=== PATIENT | male | born 1975 | race Caucasian/White ===

== ENCOUNTER 2018-03-06 05:55 | Emergency (ER) | END 2018-03-06 09:10 | disposition home or self-care (01) ==

== ENCOUNTER 2018-09-30 16:50 | Emergency (ER) | END 2018-09-30 18:13 | disposition home or self-care (01) ==

== ENCOUNTER 2019-01-02 13:47 | Emergency (ER) | payer MEDICAID ==
[~2019-01-02] VITALS: Ht 167.6 cm; Wt 91.0 kg
[~2019-01-02 13:47] MED LIST: HYDR-3498 PO; LORA-441 PO; TAMS-14 PO; TRAM50TA2 PO
[2019-01-02 14:00] VITALS: BP 158/77; PULSE 86; RESP 18; Ht 167.6 cm; Wt 91.0 kg
[2019-01-02] MEDS ORDERED: CLOT30CR24 TOP (15:19)
[2019-01-02] MEDS ORDERED: IBUP-1542 PO (15:20)
--- NOTE | 2019-01-02 15:28 | ERD ---
ER Documentation Chief Complaint Chief Complaint DYSURIA X 1 WEEK HPI 43-year-old male presents with sensation of dysuria for the last week. He has irritation in on the penis as well. Denies fevers, vomiting, shortness of breath or chest pain. Denies abdominal pain or flank pain. Denies penile discharge and denies history of new sexual partners or concern for STDs. ROS All systems reviewed and are negative except as per history of present illness. Medications Home Meds Active Scripts Ibuprofen* (Motrin*) 600 Mg Tab, 600 MG PO Q6, #15 TAB Prov:MARCELA CONRAD MD 01/02/19 Clotrimazole* (Clotrimazole* AF) 1% - 30 Gm Cream.gm., 1 APPLIC TOP BID for 10 Days, TUB Prov:MARCELA CONRAD MD 01/02/19 Lorazepam* (Ativan*) 0.5 Mg Tablet, 0.5 MG PO Q8 PRN for ANXIETY, #5 TAB Prov:NATHAN AGARWAL MD 09/30/18 Tramadol HCl (Tramadol HCl) 50 Mg Tablet, 50 MG PO Q4 PRN for PAIN, #20 TAB Prov:MARCELA CONRAD MD 03/06/18 Tamsulosin Hcl* (Flomax*) 0.4 Mg Cap.er.24h, 0.4 MG PO QPM, #30 CAP Prov:MARCELA CONRAD MD 03/06/18 Tamsulosin Hcl* (Flomax*) 0.4 Mg Cap.er.24h, 0.4 MG PO QPM for 10 Days, #30 CAP Prov:OSMAR SARAVIA MD 04/29/16 Hydrocodone Bit-Acetaminophen* ([place]ie*) 5-325 Mg Tab, 1 TAB PO Q6 PRN for PAIN, #10 TAB Prov:OSMAR SARAVIA MD 04/29/16 Allergies Allergies: Coded Allergies: No Known Allergies (Verified Allergy, Mild, 04/29/16) PMhx/Soc History of Surgery: No Anesthesia Reaction: No Hx Neurological Disorder: No Hx Respiratory Disorders: No Hx Cardiac Disorders: No Hx Psychiatric Problems: No Hx Miscellaneous Medical Probl: Yes (LEFT KIDNEY STONE) Hx Alcohol Use: No Hx Substance Use: No Hx Tobacco Use: No Smoking Status: Never smoker FmHx Family History: No diabetes, No coronary disease, No other Physical Exam Vitals Vital Signs Date Temp Pulse Resp B/P (MAP) Pulse Ox O2 O2 Flow FiO2 Time Delivery Rate 01/02/19 98.8 86 18 158/77 97 14:00 (104) Physical Exam Const: No acute distress Head: Atraumatic Eyes: Normal Conjunctiva ENT: Normal External Ears, Nose and Mouth. TMs and oropharynx normal. Neck: Full range of motion. No meningismus. Resp: Clear to auscultation bilaterally Cardio: Regular rate and rhythm, no murmurs Abd: Soft, non tender, non distended. Normal bowel sounds. General exam- patient is uncircumcised slight irritation upon retraction of foreskin. No penile discharge. Testicles nontender normal size and descended bilaterally. Skin: No petechiae or rashes Back: No midline or flank tenderness Ext: No cyanosis, or edema Neur: Awake and alert Psych: Normal Mood and Affect Results 24 hrs Laboratory Tests Test 01/02/19 14:45 Urine Color YELLOW Urine Clarity CLEAR Urine pH 6.0 Urine Specific [place] 1.025 Urine Ketones NEGATIVE mg/dL Urine Nitrite NEGATIVE mg/dL Urine Bilirubin NEGATIVE mg/dL Urine Urobilinogen NEGATIVE mg/dL Urine Leukocyte Esterase NEGATIVE Mik/ul Urine Hemoglobin NEGATIVE mg/dL Urine Glucose NEGATIVE mg/dL Urine Total Protein NEGATIVE mg/dl Procedures/MDM Urine is negative for sent for gonorrhea chlamydia. Patient presents with dysuria but has signs of balanitis. Is no signs of abdominal pain is well- appearing. He has additional complaints of sore throat with essentially normal exam. Will treat with Lotrimin, ibuprofen, further observation at home, primary care follow-up, fluids and return precautions. He should return for abdominal pain, fevers, vomiting, new worsening symptoms with primary care doctor. The patient was stable with no new complaints during the ER course. Clinically, there is no current evidence to suggest meningitis, sepsis, acute abdomen, pneumonia, stroke, acute coronary syndrome, pulmonary embolism, aortic dissection or any other emergent condition appearing to require further evaluat ion or hospitalization. Patient counseled regarding my diagnostic impression and care plan. Prior to discharge all questions answered. Pt agrees with treatment plan and understands strict return precautions. Pt is instructed to follow up with primary care provider within 24-48 hours. Precautionary instructions provided including instructions to return to the ER if not improving or for any worsening or changing symptoms or concerns. Departure Diagnosis: Primary Impression: Balanitis Additional Impression: Dysuria Condition: Stable Patient Instructions: Dysuria, Balanitis Additional Instructions: orina normal. vamos a tratar para ungo. Examines normal hoy. Cheque otro vez con perez doctor primario en el proximo hassan or regresa para mas o nueva simptomas. MARCELA CONRAD MD Jan 02, 2019 15:28
== END 2019-01-02 15:39 | disposition home or self-care (01) ==
LOC: FTE 13:47
DX: N48.1 Balanitis (principal)
CPT/HCPCS: 81003; 87591; Z7502; 99283